=== PATIENT | female | born 1965 | race Caucasian/White ===

== ENCOUNTER 2017-10-08 18:06 | Emergency (ER) | payer OTHER, SELFPAY ==
--- NOTE | 2017-10-08 20:22 | RAD ---
THREE VIEWS RIGHT WRIST 10/08/17 HISTORY: Right wrist injury after a fall at work. FINDINGS: There is no evidence of a fracture, dislocation, or other osseous abnormality involving the right wri st. IMPRESSION: No acute osseous abnormality right wrist. If there is clinical concern for fracture of the navicular bone, followup views of the wrist in 4 to 7 days is recommended to exclude a radiographically occult fracture. POS: [facility]
[2017-10-08] MEDS ORDERED: Naproxen 500 MG TAB ONE (20:23)
[2017-10-08] MEDS ORDERED: HYDROcodone/Acetaminophen 10/325 mg Tablet ONE (20:23)
--- NOTE | 2017-10-08 20:57 | RAD ---
SUNRISE VIEW LEFT PATELLA 10/08/17 HISTORY: Fall, injury to left knee. COMPARISON: 10/08/17 at 1847 hours. The previously described lucency related to fracture involving the patella is less well seen on this view due to plane of scanning. However, on prior study there was lucency seen in the anterior aspect of the patella and in the inferior pole of the patella suggesting fracture of the patella. There is o verlying subcutaneous soft tissue swelling. IMPRESSION: Nondisplaced but slightly fracture involving the left patella with overlying subcutaneous s oft tissue swelling. POS: [facility]
--- NOTE | 2017-10-08 21:18 | RAD ---
FOUR VIEWS LEFT KNEE 10/08/17 HISTORY: Injury left knee after a fall. FINDINGS: There is a fracture involving the junction of the mid portion inferior pole of the patella with minim al separation of the fracture fragments measuring approximately 3 mm. No additional fracture is seen, and there is no evidence of a dislocation. The lateral view is slightly rotated. There is subcutaneo us edema seen at the anterior aspect of the knee. IMPRESSION: 1. Fracture of the patella. 2. Subcutaneous soft tissue swelling. POS: [facility]
== END 2017-10-08 22:37 | disposition home or self-care (01) ==
LOC: MADERS 18:06
DX: S82.002A Unspecified fracture of left patella, initial encounter for closed fracture (principal); S60.221A Contusion of right hand, initial encounter; S60.811A Abrasion of right wrist, initial encounter; I10 Essential (primary) hypertension; F17.210 Nicotine dependence, cigarettes, uncomplicated; Z79.899 Other long term (current) drug therapy; W01.0XXA Fall on same level from slipping, tripping and stumbling without subsequent striking against object, initial encounter; Y99.0 Civilian activity done for income or pay

== ENCOUNTER 2018-12-07 15:52 | Emergency (ER) | payer SELFPAY ==
[2018-12-07] MEDS ORDERED: Tetracaine 0.5% OPHTH SOLN/PF 4 ML BOT ONE (16:07)
--- NOTE | 2018-12-07 16:43 | CT ---
Exam: Head CT without contrast HISTORY: Hypertension. Unable to see out of the left eye. Right eye blurry vision. Altered mental sta tus. COMPARISON: none FINDINGS: Hemorrhage: No intraparenchymal hemorrhage or extra-axial hematoma. Brain parenchyma: Cortical adams-white matter differentiation is preserved. No mass effect or midline shift. Basilar cisterns are patent. Periventricular, deep and subcortical white matter hypodensities may be due to chronic small vessel ischemic change, given overall symmetry. However, un derlying white matter infarct cannot be excluded. Ventricular system: Ventricles and sulci are patent and symmetric. Calvarium: Intact. Sinuses and mastoid air cells: Adequate aeration. 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 IMPRESSION: 1. No parenchymal hemorrhage. 2. White matter hypodensities which may be due to chronic small vessel ischemic change. However, supe rimposed white matter infarct cannot be excluded. Further evaluation with brain MRI may be beneficial.
[2018-12-07 16:56] LABS: #Basophils 0.2 thou/uL (0.0-0.2); #Eosinphils 0.2 thou/uL (0.0-0.7); #Lymphocytes 3.6 thou/uL (1.20-3.40); #Monocytes 0.6 thou/uL (0.11-0.59); #Neutrophils 5.8 thou/uL (1.40-6.50); %Basophils 1.5 % (0.0-1.0); %Eosinophils 1.9 % (0.0-10.0); %Monocytes 6.1 % (0.0-10.0); %Neutrophils 55.5 % (42.0-75.0); Hemoglobin 14.4 g/dL (12.0-16.0); Mean Corpuscular HGB CONC 32.7 g/dL (32.0-36.0); Mean Corpuscular Hemoglobin 29.7 pg (27.0-31.0); Mean Corpuscular Volume 90.9 fL (78.0-98.0); Platelet Count 247 thou/uL (130-400); RBC Distribution Width 12.5 % (11.5-14.5); Red Blood Cell (RBC) Count 4.86 mill/uL (4.20-5.40); White Blood Cell (WBC) Count 10.4 thou/uL (4.8-10.8)
[2018-12-07 17:04] LABS: PTT 27.2 SEC (22.9-36.1); Prothrombin Time 12.9 SEC (12.0-14.7)
--- NOTE | 2018-12-07 17:06 | RAD ---
PORTABLE CHEST 12/07/18 PROVIDED CLINICAL HISTORY: Chest pain. FINDINGS: No comparisons. The cardiac silhouette appears prominent which may be at least partially on the basis of portable maria isabel hnique. No focal consolidation, pleural fluid or pneumothorax apparent. IMPRESSION: No evidence for an acute cardiopulmonary process. POS: [facility]
[2018-12-07 17:14] LABS: ALT (SGPT) 14 U/L (8-55); AST (SGOT) 15 U/L (5-34); Albumin 4.2 g/dL (3.5-5.0); Alkaline Phosphatase 84 U/L (40-150); Anion Gap 15 mmol/L (10-20); BUN (Urea Nitrogen) 18 mg/dL (9.8-20.1); Bilirubin, Total 0.3 mg/dL (0.2-1.2); CK (CPK) 90 U/L (29-168); Calc. Creatinine Clearance 0 mL/min (70-130); Calcium 9.6 mg/dL (7.8-10.44); Carbon Dioxide 21 mmol/L (22-29); Chloride 109 mmol/L (98-107); Estimated GFR-MDRD 76; Globulin 3.7 g/dL (2.4-3.5); Glucose 92 mg/dL (70-105); Protein, Total 7.9 g/dL (6.0-8.3); Sodium 141 mmol/L (136-145)
[2018-12-07 17:14] LABS: Bilirubin Negative (Negative); Blood, Urine Negative (Negative); Clarity Clear (Clear); Glucose, Urine (Dipstick) Negative (Negative); Leukocyte Negative (Negative); Nitrite Negative (Negative); Protein, Urine (Dipstick) Negative (Neg-Trace); Specific Gravity, Urine 1.015 (1.005-1.030); Urobilinogen 0.2 mg/dL (0.2-1.0)
[2018-12-07] MEDS ORDERED: Aspirin Chewable 81 MG TAB ONE (17:16)
== END 2018-12-07 17:24 | disposition short-term general hospital (02) ==
LOC: MADERS 15:52
DX: H34.8122 Central retinal vein occlusion, left eye, stable (principal); I16.1 Hypertensive emergency; I10 Essential (primary) hypertension; F17.210 Nicotine dependence, cigarettes, uncomplicated
CPT/HCPCS: 36416; 70450; 71045; 80053; 81003; 82550; 84443; 84484; 85025; 85610; 85730; 93005; 96365; J7050